=== PATIENT | female | born 1995 | race Caucasian/White ===

== ENCOUNTER 2022-01-17 20:19 | Emergency (ER) | payer OTHER ==
[~2022-01-17] VITALS: Ht 175.3 cm; Wt 59.0 kg
[2022-01-17 20:47] VITALS: BP 108/68
--- NOTE | 2022-01-17 22:16 | NUR ---
Patient discharged to home in stable condition. Written and verbal after care instructions given. Patient verbalizes understanding of instruction. Pt ambulatory with a steady gait
== END 2022-01-17 22:43 | disposition home or self-care (01) ==
LOC: ER 20:27
DX: R00.2 Palpitations (principal)
CPT/HCPCS: 71045-TC